=== PATIENT | male | born 1985 | race Caucasian/White ===

== ENCOUNTER 2018-03-24 08:03 | Day surgery (SDC) | payer OTHER ==
[~2018-03-24 08:03] MED LIST: Buffered Lidocaine 0.9% SYRIN* 5 ML/SYR SYRINGE INTRADERM ONE
[2018-03-24] MEDS ORDERED: ceFAZolin 2 GM PREMIX (*) 2 GM/50 ML BAG IVPB ONE (08:09)
[2018-03-24] MEDS ORDERED: Midazolam* 1 MG/ML 2 ML VIAL (2 MG) ONE (09:08)
[2018-03-24] MEDS ORDERED: fentaNYL* 50 MCG/ML 2 ML VIAL (100 MCG VIAL) ONE ×3 (09:08→12:01)
[2018-03-24] MEDS ORDERED: Bupivacaine 0.5% SDV PF* 30ML VIAL ONE (09:27)
[2018-03-24] MEDS ORDERED: Dexamethasone IV* 4 MG/ML 1 ML (4 MG) ONE (09:54)
[2018-03-24] MEDS ORDERED: Propofol* 10 MG/ML 20 ML BTL IV PUSH ONE (09:54)
[2018-03-24] MEDS ORDERED: Lidocaine 2% PF * 5 ML VIAL ONE (09:54)
[2018-03-24] MEDS ORDERED: Ondansetron SYRINGE* 4 MG/2 ML SYRINGE (from 40mg/20ml vial) IV ONE (10:00)
[2018-03-24] MEDS ORDERED: HYDROmorphone INJ* 1 MG/ML CARPUJECT SYRINGE IV PRN (10:29)
[2018-03-24] MEDS ORDERED: Naloxone* 0.4 MG/ML 1 ML VIAL IV PRN (10:29)
[2018-03-24] MEDS ORDERED: HYDROcodone/ACETAMIN 5-325 MG* 1 TAB PO PRN (10:29)
[2018-03-24] MEDS ORDERED: Ketorolac INJ* 30 MG/ML 1 ML VIAL ONE (10:30)
[2018-03-24] MEDS ORDERED: HYDROcodone/ACETAMIN 5-325 MG* 1 TAB ONE (12:01)
[2018-03-24] MEDS: fentaNYL* 50 MCG/ML 2 ML VIAL (100 MCG VIAL) IV PRN ×2 (12:04→12:26)
[2018-03-24 13:20] VITALS: BP 126/86
--- NOTE | 2018-03-24 13:41 | RAD ---
INDICATION: Left ankle osteotomy, M 19.172 COMPARISONS: March 24, 2018 TECHNIQUE: Fluoroscopy was provided for a surgical procedure. Total fluoroscopy time is: 6.6 seconds FINDINGS: Spot images demonstrate osteotomy and internal fixation of the distal tibia. IMPRESSION: FLUOROSCOPY WAS PROVIDED FOR A SURGICAL PROCEDURE CPT II Codes: G9500
--- NOTE | 2018-03-25 09:52 | OP ---
DATE OF OPERATION: 03/24/18 - [facility] DATE OF : 81 ATTENDING SURGEON: Jax Orantes MD ACQUISITION ADVISOR: Deirdre Delgado PA-C PRE-OP DIAGNOSIS: Fixed equinovarus deformity, previous tibiotalar arthrodesis. POST-OP DIAGNOSIS: Fixed equinovarus deformity, previous tibiotalar arthrodesis. OPERATIVE PROCEDURE: Osteotomy, supramalleolar, left ankle. DESCRIPTION OF PROCEDURE: The patient was taken to the operating room where a longitudinal incision was made along the anterior free flap border just in the lateral hindfoot. We carried this down directly to the lateral tibia for checking the SPN nerve in the anterior flap. Using a couple of K-wires and the image intensifier, we identified the appropriate level for the osteotomy. A resected wedge was performed at the anterolateral apex, probably 4 to 5 mm in thickness. This was removed smoothly with the edges repaired carefully with the osteotome. We then closed the wedge with a compression clamp and placed a locking fibula plate of the Synthes along the tibial osteotomy. Under compression, this was fixed with a combination of locking, nonlocking screws. X -ray intraoperatively showed satisfactory position of the hardware and the osteotomy in both planes. We then irrigated thoroughly, closing 2-0 Vicryl sutures, 2-0 subcutaneous tissue and leigh for the skin. A compression dressing and plaster splint applied. [id number]/[facility] #: [id number] MTDD
== END 2018-03-24 13:55 | disposition home or self-care (01) ==
LOC: OR 08:03
PROVIDERS: ATTEND Orthopaedic Surgery
DX: M21.172 Varus deformity, not elsewhere classified, left ankle (principal); M19.172 Post-traumatic osteoarthritis, left ankle and foot; Z87.891 Personal history of nicotine dependence; G57.82 Other specified mononeuropathies of left lower limb; M25.572 Pain in left ankle and joints of left foot; F41.8 Other specified anxiety disorders
CPT/HCPCS: 76000; C1713; C1776; J0690; J1100; J1885; J2250; J2405; J2704; J3010

== ENCOUNTER 2018-07-28 10:55 | Day surgery (SDC) | payer OTHER ==
[2018-07-28] MEDS ORDERED: ceFAZolin 2 GM in NS PREMIX(*) 2 GM/100 ML BAG IVPB ONE (11:08)
[2018-07-28] MEDS ORDERED: Buffered Lidocaine 0.9% SYRIN* 5 ML/SYR SYRINGE ONE (11:08)
[2018-07-28] MEDS ORDERED: fentaNYL* 50 MCG/ML 2 ML VIAL (100 MCG VIAL) ONE ×2 (12:23→13:18)
[2018-07-28] MEDS ORDERED: Midazolam* 1 MG/ML 2 ML VIAL (2 MG) ONE (12:23)
[2018-07-28] MEDS ORDERED: Bupivacaine 0.5% SDV PF* 30ML VIAL ONE (12:37)
[2018-07-28] MEDS ORDERED: Dexamethasone IV* 4 MG/ML 1 ML (4 MG) ONE (13:09)
[2018-07-28] MEDS ORDERED: Propofol* 10 MG/ML 20 ML BTL IV PUSH ONE (13:09)
[2018-07-28] MEDS ORDERED: Ondansetron INJ* 2 MG/ML VIAL ONE (13:09)
[2018-07-28] MEDS ORDERED: Ibuprofen TAB* 600 MG PO PRN (14:09)
[2018-07-28] MEDS ORDERED: Naloxone* 0.4 MG/ML 1 ML VIAL IV PRN (14:09)
[2018-07-28] MEDS ORDERED: Acetaminophen TAB* 325 MG PO PRN (14:09)
[2018-07-28] MEDS ORDERED: Ibuprofen TAB* 600 MG ONE (14:21)
[2018-07-28] MEDS ORDERED: Acetaminophen TAB* 325 MG ONE (14:21)
[2018-07-28] MEDS ORDERED: fentaNYL* 50 MCG/ML 5 ML VIAL (250 MCG VIAL) ONE (14:32)
[2018-07-28] MEDS: fentaNYL* 50 MCG/ML 2 ML VIAL (100 MCG VIAL) IV PRN ×5 (14:34→15:06)
[2018-07-28] MEDS ORDERED: oxyCODONE TAB* 5 MG TAB ONE (15:57)
[2018-07-28] MEDS ORDERED: HYDROmorphone INJ* 0.5 MG/0.5 ML SYRINGE IV PRN (15:59)
[2018-07-28 16:38] VITALS: BP 133/87
--- NOTE | 2018-07-28 22:22 | OP ---
DATE OF OPERATION: 07/28/18 - [facility] DATE OF : 81 SURGEON: Jax Orantes MD COMMUNITY FUNDRAISER: Chiquita Acosta PA-C PRE-OP DIAGNOSIS: Neuropathic nonunited left ankle fracture. POST-OP DIAGNOSIS: Neuropathic nonunited left ankle fracture. OPERATIVE PROCEDURE: Left transtibial amputation. DESCRIPTION OF PROCEDURE: The patient was taken to the operating room where thigh tourniquet was inflated. We made a transverse elliptical incision at the mid 3rd portion of the left calf raising the periosteum proximally to divide the tibia handbreadth below the tubercle. We doubled the anterior edge. We then transected the fibula another 2 cm proximal. By flexing through the osteotomy, we were able to divide the posterior flaps and deliver the leg from the field. We then obtained hemostasis with #1 Vicryl suture ligatures for the anterior and posterior vasculature. Tourniquet was dropped at approximately 10 minutes and additional hemostasis obtained. We irrigated thoroughly sending cultures to pathology. We then closed anterior to posterior fascia flaps with # 1 Vicryl sutures. Deep subcu 0 Vicryl and 2-0 Vicryl subcu and Prolene for the skin, compression dressing, plaster splint applied. [id number]/[facility] #: [id number] [facility]
== END 2018-07-28 16:52 | disposition home or self-care (01) ==
LOC: OR 10:55
PROVIDERS: ATTEND Orthopaedic Surgery
DX: M19.172 Post-traumatic osteoarthritis, left ankle and foot (principal); M21.6X2 Other acquired deformities of left foot; G57.92 Unspecified mononeuropathy of left lower limb; Z87.891 Personal history of nicotine dependence; F32.9 Major depressive disorder, single episode, unspecified
CPT/HCPCS: 87070; 87073; 87205; A9270-GY; J0690; J1100; J2250; J2405; J2704; J3010